=== PATIENT | female | born 1965 | race Caucasian/White ===

== ENCOUNTER 2024-03-25 07:36 | Day surgery (SDC) | payer BC, OTHER, SELFPAY ==
[2024-03-25 07:57] VITALS: BP 126/89; PULSE 134; RESP 18; TEMP 36.4; O2SAT 95; BMI 37.4
[2024-03-25] MEDS: sodium chloride 0.9% 1,000 ML 30 ML IV (08:06)
--- NOTE | 2024-03-25 08:20 | W.PM.OPSUD ---
Surgery/Procedure H&P Update DATE OF PROCEDURE: March 25, 2024 DATE H&P PERFORMED: 03/10/24 H&P UPDATE INFORMATION: I have reviewed H&P completed within last 30 days, I have examined patient prior to procedure, No changes to prior documentation and H&P is in [facility] EMR on date indicated PLANNED PROCEDURE: Operation Date: 03/25/24 08:40 Proposed Procedures p Colonoscopy 61303, G0105 , R19.5(Not Applicable) - Jean Fiore MD
--- NOTE | 2024-03-25 09:22 | ANES.PREANE2 ---
Pre-Anesthetic Assessment Height/Weight: Height 1.63 m Weight 98.883 kg Temp Pulse Resp BP Pulse Ox O2 Del Method 97.6 F 134 H 18 126/89 95 Room Air 03/25/24 07:57 03/25/24 07:57 03/25/24 07:57 03/25/24 07:57 03/25/24 07:57 03/25/24 07:57 Preop Diagnosis: screening Operation Date: 03/25/24 08:40 Proposed Procedures p Colonoscopy 91713, G0105 , R19.5(Not Applicable) - Jean Fiore MD Familial anesthetic complications: none Was Beta Deb taken within 24 hours: N/A Was Clonidine taken within 24 hours: N/A Last intake: Intake Last Liquid Date 03/24/24 Last Liquid Time 22:30 Last Solid Date 03/23/24 Last Solid Time 19:00 Social No alcohol and No tobacco Exam alert and oriented x 3 Airway Submandibular: within normal limits Cervical ROM: within normal limits Mallampati: Class I Dentition: full History/ROS No significant history except as noted Metabolic Thyroid Disease Anesthetic Plan ASA status: 2 Anesthesia: Anesthesia Evaluation, General and MAC Risk of > 500 ml blood loss (7ml/kg in children): No Medications/Allergies Home Medications Medication Instructions Recorded Confirmed Last Taken Type estradiol 0.05 mg/24 hr semiweekly 0.05 mg transdermal DIRECTED 03/10/24 03/25/24 03/23/24 History transdermal patch hydrochlorothiazide 25 mg tablet 25 mg PO DAILY 03/10/24 03/25/24 03/24/24 History levothyroxine 50 mcg tablet 50 mcg PO DAILY 03/10/24 03/25/24 03/24/24 History montelukast 10 mg tablet 10 mg PO QPM 03/10/24 03/25/24 03/23/24 History Allergies Allergy/AdvReac Type Severity Reaction Status Date / Time bupropion [From Wellbutrin] Allergy anxiety Verified 03/25/24 07:52 tamiflu Allergy hives Uncoded 03/25/24 07:52 Current Medications Generic Name Dose Route Start Last Admin Trade Name Freq PRN Reason Stop Dose Admin Sodium Chloride 1,000 mls @ 30 mls/hr 03/25/24 07:45 03/25/24 08:06 Sodium Chloride 0.9% IV 03/26/24 07:44 30 mls/hr .Q24H JAMES Administration PFSH Anesthesia Social History Smoking and tobacco/nicotine status: never used tobacco/nicotine Data Anesthesia Cardiac Studies: No Data to Display
[2024-03-25 10:02] VITALS: BP 96/69; PULSE 92; RESP 16; TEMP 36.3; O2SAT 97
[2024-03-25 10:12] VITALS: BP 100/85; PULSE 81; RESP 16; O2SAT 96
--- NOTE | 2024-03-25 10:35 | ANE.PACU2 ---
Inpatient post-anesthesia follow up: Airway intact: Yes Vital signs: Temperature 97.3 F Pulse Rate 81 Respiratory Rate 16 Blood Pressure 100/85 Pulse Oximetry 96 Oxygen Delivery Me thod Room Air Oxygen Flow Rate Fraction of Inspir ed Oxygen Hydration adequate: Yes Nausea and vomiting: No Pain level: 1 Mental status: Baseline
== END 2024-03-25 10:42 | disposition home or self-care (01) ==
PROVIDERS: Family Provider Family Medicine; PCP Registered Nurse; Visit Provider Surgery
PROC: 0DJD8ZZ Inspection of Lower Intestinal Tract, Via Natural or Artificial Opening Endoscopic (ICD-10-PCS; CPT 45378; principal; 2024-03-25 08:40)
DX: R19.5 Other fecal abnormalities (principal); K57.30 Diverticulosis of large intestine without perforation or abscess without bleeding; D12.3 Benign neoplasm of transverse colon; D12.5 Benign neoplasm of sigmoid colon; K62.0 Anal polyp
CPT/HCPCS: 45380; 45381; 45385; 88305; J2704; J7030

== ENCOUNTER 2024-03-26 13:05 | Outpatient (CLI) | payer BC, OTHER, SELFPAY ==
[2024-03-26 13:59] LABS: Basophils % 0.4 %; Eosinophils # 0.1 10^3/uL (0.0-0.8); Eosinophils % 0.7 %; Hematocrit 41.4 % (36-47); Lymphocytes # 2.6 10^3/uL (0.8-4.8); Lymphocytes % 23.6 %; Mean Corpuscular HGB Conc 32.9 g/dL (30-55); Mean Corpuscular Hemoglobin 30.3 pg (27-33); Mean Corpuscular Volume 92.2 fl (85-98); Mean Platelet Volume 9.8 fL (7.4-10.4); Monocytes # 0.9 10^3/uL (0.2-0.9); Monocytes % 8.2 %; Neutrophils # 7.29 10^3/uL (1.8-7.7); Neutrophils % 66.7 %; Nucleated Red Blood Cells % 0 %; Platelet Count 353 10^3/cmm (157-399); Red Blood Count 4.49 10^6/uL (3.85-5.65); Red Cell Distribution Width 12.8 % (12.1-15.1); White Blood Count 10.91 10^3/uL (3.29-11.43)
[2024-03-26 14:27] LABS: Carcinoembryonic Antigen 2.2 ng/mL (0.0-4.7)
[2024-03-26 14:39] LABS: Alanine Aminotransferase 32 U/L (0-33); Albumin Level 4.1 g/dL (3.5-5.2); Alkaline Phosphatase 100 U/L (35-105); Anion Gap 15.6 (5-19); Aspartate Amino Transferase 20 U/L (0-32); Blood Urea Nitrogen 13 mg/dL (6-20); Calcium 9.1 mg/dL (8.5-10.5); Carbon Dioxide 25 mmol/L (22-29); Chloride 102 mmol/L (98-107); Globulin 3.5 g/dL (1.3-4.6); Glomerular Filtration Rate 64.3 mL/min (90-130); Glucose 98 mg/dL (65-115); Osmolality Calculated 288 mOsm/kg (285-295); Potassium 3.6 mmol/L (3.5-5.1); Sodium 139 mmol/L (136-145); Total Bilirubin 0.4 mg/dL (0.15-1.2); Total Protein 7.6 g/dL (6.6-8.7)
== END 2024-03-26 13:06 | disposition home or self-care (01) ==
PROVIDERS: PCP Registered Nurse; Visit Provider Surgery
DX: C18.9 Malignant neoplasm of colon, unspecified (principal)
CPT/HCPCS: 36415; 80053; 82378; 85025

== ENCOUNTER 2024-04-02 11:33 | Outpatient (CLI) | payer BC, OTHER, SELFPAY ==
[2024-04-02] MEDS: iohexol 350 mg/mL 500 mL Btl (per mL) PO (12:02)
--- NOTE | 2024-04-02 12:30 | CT_ITS ---
WS: [id number] CT ABDOMEN AND PELVIS WITH CONTRAST HISTORY: colon cancer TECHNIQUE: Imaging performed of the abdomen and pelvis with IV contrast. Single phase imaging of the abdomen. Coronal and sagittal reformats are submitted. All CT scans at [facility] use at [address] one of these dose optimization techniques: automated exposure control; mA and/or kV adjustment per patient size (includes targeted exams where dose is matched to clinical indication); or iterative re construction. IV CONTRAST: Omnipaque 350; 100 mL IV. Oral contrast: Yes. DLP: 824.93 mGy.cm COMPARISON: None available. Lower thorax: Lung bases are clear. Heart is normal size. No hiatal hernia. Liver/biliary system: Normal size with mild hepatic steatosis. No mass or bile duct dilatation. Gallbladder: Large, 2.5 cm gallstone. No acute cholecystitis. Pancreas: Normal size pancreas and pancreatic duct. No adjacent inflammation. Spleen: Normal size spleen. No mass or infarct. Adrenal glands: Normal. Right kidney: Normal size kidney. Small extrarenal pelvis. No obstruction. Left kidney: Normal. Aorta: Normal. Lymphadenopathy: None. Free fluid: None. GI tract: Nondistended stomach. No small bowel obstruction. High density foreign body object in the h epatic flexure may be from a recent biopsy. No masses or obstruction. Prior appendectomy. Abdominal wall: Fat containing umbilical hernia. Pelvis: Prior hysterectomy. No free fluid or adenopathy. Negative urinary bladder. Bones: Unremarkable. CT/CT abdomen pelvis w con* [id number] IMPRESSION: 1. No metastatic disease to the liver or adrenal glands. 2. No colon obstruction and no colon mass identified. 3. Mild hepatic steatosis. 4. Cholelithiasis without acute cholecystitis. 5. Prior appendectomy. 6. Prior hysterectomy.
[2024-04-02] MEDS: iohexol 350 mg/mL 500 mL Btl (per mL) IV (12:48)
== END 2024-04-02 11:34 | disposition home or self-care (01) ==
LOC: RAD 11:33
PROVIDERS: PCP Registered Nurse; Visit Provider Surgery
DX: C18.9 Malignant neoplasm of colon, unspecified (principal); K76.0 Fatty (change of) liver, not elsewhere classified; K80.20 Calculus of gallbladder without cholecystitis without obstruction; T18.4XXA Foreign body in colon, initial encounter; X58.XXXA Exposure to other specified factors, initial encounter; Z98.890 Other specified postprocedural states
CPT/HCPCS: 74177; Q9967